=== PATIENT | male | born 2000 | race Two or more races ===

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

== ENCOUNTER 2025-04-26 20:40 | Inpatient (IN) | payer MEDICAID ==
[~2025-04-26] VITALS: Ht 172.7 cm; Wt 75.0 kg
[~2025-04-26 20:40] MED LIST: CEPH-585 PO; NAPR-56 PO
[2025-04-26 21:23] LABS: MEAN PLATELET VOLUME 7.2 FL (7.4-10.4); RED CELL DISTRIBUTION WIDTH 13.4 % (11.5-14.5)
[2025-04-26 21:32] LABS: CREATININE 0.82 MG/DL (0.60-1.10); TOTAL CARBON DIOXIDE 26.6 MMOL/L (24-32); eCRCL 137 ML/MIN; eGFR > 90 ML/MIN
--- NOTE | 2025-04-26 22:24 | Physician Documentation ---
History of Present Illness ~ Chief Complaint: Abscess Stated Complaint: ABSCESS Time Seen by MD: 23:19 HPI This is a 24-year-old male who presents with concern for abscess to his right buttock progressively worsening over the past three days, patient reports no known injury to the area. Patient reports frequent abscesses. Patient reports fever and chills. History as above. He reports multiple abscesses in his buttock ever since he was 13 years old. He states this when began three days ago. Positive fevers. Tetanus Within 5 Years: No Medication Reconciliation Allergies: Uncoded Allergies: SULFA (Allergy, Unknown, 11/20/24) Scheduled Cephalexin*Monohydrate* (Keflex*), 1 CAP PO QID Naproxen (Naproxen), 1 TAB PO Q12H Past Medical History Past Medical History: *DERMATOLOGY*, Cellulitis Past Surgical History: other Other Past Surgical History: Pilonidal cyst drainage Drug Use: none Lives In: Home Review of Systems ROS As stated above in the HPI, otherwise all systems are reviewed and negative. Physical Exam Vital Signs: Temperature: 100.0, Source: Temporal, Heart Rate: 127, Respiratory Rate: 15, BP: 114/75, Pulse Oximetry: 97, Weight: 75.000 Physical Exam General: Patient is awake, alert, oriented x4 in no acute distress Head: Normocephalic and atraumatic. Eyes: Conjunctival normal. EOMI. PERRL. ENT: Mucous membranes moist. Neck: Supple, trachea is midline. Chest: Clear to auscultation bilaterally without rales, rhonchi, or wheezes. There is no accessory muscle use or retractions. Cardiac: Tachycardic and regular without murmurs, gallops, or rubs. Abd: Soft, nondistended, nontender, with normoactive bowel sounds. No guarding, rebound, or rigidity. : Large 10 cm abscess to patient's right buttock. No cellulitis Procedures Procedures Patient and drainage: Status post informed verbal consent patient was sterilely cleaned and draped. 10 cc of lidocaine with epinephrine was utilized to anesthetize patient. 11. Blade utilized to perform to incision garvey to patient's large abscess. De loculation with sterile probe performed along with expression of a proximally 20 cc of purulent discharge. Packing was threaded through patient's abscess and doubt create a loop for continued drainage. Patient tolerated procedure well without complication. Total time of procedure 10 minutes. Progress Results/Orders Results/Orders Orders - CRISTO LIRA MD Culture Blood (04/26/25 21:00) Chest,Single View (04/26/25 21:05) Monitor (04/26/25 21:00) Oxygen (04/26/25 21:00) Saline Lock (04/26/25:00) Ct Pelvis (04/26/25 23:45) Culture Body Fluid Order (04/26/25:45) Page Hospitalist (04/27/25 00:39) Fill Out Med Reconciliation (04/27/25 00:39) Completed Orders - CRISTO LIRA MD Cbc/Diff (04/26/25:00) Chest,Single View (04/26/25 21:05) Procalcitonin (04/26/25:00) BMP (04/26/25 21:00) Lacticsepsis (04/26/25 21:00) Piperacillin/Tazo 3.375gm/50ml (Zosyn 3. (04/26/25 23:25) Vancomycin 1gm 200ml H20 (Peg) (Vancomyc (04/26/25 23:25) Ct Pelvis (04/26/25 23:45) Normal Saline 1000ml (0.9% Sodium Chlori (04/26/25 23:25) Lidocaine 1% W/Epi 1:100,000 (Xylocaine (04/26/25:25) Iohexol 300mg/Ml 100ml Inj. (Omnipaque-3 (04/26/25 23:35) Vancomycin/Ns 1 Gm Add-Pine (Vancomyc (04/26/25 23:40) Ketorolac Trometh 15mg/Ml Vial (Toradol (04/26/25 23:45) Ondansetron Inj. (Zofran 4mg/2ml Vial) (04/26/25 23:45) Morphine 4mg/Ml Inj. (Morphine Inj.) (04/26/25 23:45) Ua W/Microscopic, Cult If Ind (04/26/25 23:26) Medications Received in ER Medications (Trade) Dose Ordered Sig/Sherry Route PRN Reason Start Time Stop Time Status Last Admin Dose Admin Piperacillin/ Tazobactam/ Dextrose 50 ml @ 100 mls/hr ONCE ONCE IV 04/26/25 23:25 04/26/25 23:54 DC 04/26/25 23:49 100 MLS/HR (0.9% sodium chloride (NS) 1000ml IV soln) 2,000 ml ONCE ONCE IVB 04/26/25 23:25 04/26/25 23:26 DC 04/26/25 23:50 2,000 ML (Xylocaine 1%-EPI 1:100,000) Physician to administ... ONCE ONCE IJ 04/26/25 23:25 04/26/25 23:38 DC 04/26/25 23:50 20 ML Vancomycin HCl 250 ml @ 166.236 mls/hr ONCE ONCE IV 04/26/25 23:40 04/27/25 01:10 DC 04/27/25 00:50 166.236 MLS/HR (Toradol injection) 15 mg ONCE ONCE IV 04/26/25 23:45 04/26/25 23:46 DC 04/26/25 23:52 15 MG (Zofran 4mg/2ml vial) 4 mg ONCE ONCE IV 04/26/25 23:45 04/26/25 23:46 DC 04/26/25 23:51 4 MG (morphine inj.) 4 mg ONCE ONCE IV 04/26/25 23:45 04/26/25 23:46 DC 04/26/25 23:51 4 MG Vital Signs 04/26/25 04/26/25 04/27/25 20:58 23:16 00:08 Temp 100.0 100.0 100.0 Pulse 127 101 89 Resp 15 16 23 B/P (MAP) 114/75 117/66 (83) 116/68 (84) Pulse Ox 97 97 98 O2 Flow Rate 0 Laboratory Tests Test 04/26/25 21:11 04/26/25 23:26 White Blood Count 19.1 H Red Blood Count 4.46 L Hemoglobin 15.0 Hematocrit 42.6 Mean Corpuscular Volume 95.5 Mean Corpuscular Hemoglobin 33.5 H Mean Corpuscular Hemoglobin Concent 35.1 Red Cell Distribution Width 13.4 Platelet Count 322 Mean Platelet Volume 7.2 L Neutrophils (%) (Auto) 83.3 H Lymphocytes (%) (Auto) 9.3 L Monocytes (%) (Auto) 6.5 Eosinophils (%) (Auto) 0.6 Basophils (%) (Auto) 0.3 Neutrophils # (Auto) 15.9 H Lymphocytes # (Auto) 1.8 Monocytes # (Auto) 1.2 H Eosinophils # (Auto) 0.1 Basophils # (Auto) 0.1 CBC Comment Sodium Level 137 Potassium Level 3.2 L Chloride Level 99 Carbon Dioxide Level 26.6 Anion Gap 11 Blood Urea Nitrogen 9 Creatinine 0.82 Estimated GFR/1.73 m2 > 90 BUN/Creatinine Ratio 11.0 Glucose Level 98 Lactic Acid Level 2.0 Calcium Level 9.0 Albumin 4.2 Procalcitonin 0.43 Chemistry Comments Urine Specimen Description Cln catch midstream Urine Color Yellow Urine Clarity Clear Urine pH 5.0 Urine Specific [place] >=1.030 Urine Protein 30 H Urine Glucose (UA) Negative Urine Ketones Trace H Urine Occult Blood Negative Urine Nitrite Negative Urine Bilirubin Small Urine Urobilinogen 0.2 Urine Leukocyte Esterase Negative Urine RBC 0-2 Urine WBC 0-4 Urine Squamous Epithelial Cells Few Urine Amorphous Urates 1+ Urine Bacteria None seen Urine Sperm Few Urine Culture Indicated Not ind Volume Urine Centrifuged 10 ml Urine Comment Microbiology Date/Time Source Procedure Growth Status 04/26/25 21:16 Blood Hand Right Blood Culture - Preliminary NEGATIVE (LESS THAN 24 HOURS) Resulted Medical Decision Making Additional information obtaine: old records Findings Patient presented to the emergency room with a abscess on his right buttock. Patient is septic with fever tachycardia leukocytosis. In this light IV antibiotics and IV fluids has been administered. Patient's blood pressures remained stable however he is septic and we will admit for continued antibiotics. Patient is status post incision and drainage. Differential Dx:Considerations: Include: Abscess, Bacteremia, Cellulitis, Erys ipelas, Felon, Gas gangrene, Hidrademitis suppurativa, Impetigo, Lymphangitis, Osteromyelitis, Paronychia, Septicemia, Other Departure Admitted to Inpatient Unit: yes, to hospitalist Impression: Primary Impression: Abscess Additional Impression: Sepsis Condition: Guarded Referrals: NO PRIMARY CARE PROVIDER (PCP) Signature Scribe Signature: No scribe Attestation: The note accurately reflects work and decisions made by me.Cristo Lira MD 04/27/25 00:38 ELAINE REYES Apr 26, 2025 22:24 CRISTO LIRA MD Apr 26, 2025 23:29
[2025-04-26] MEDS ORDERED: VANCOMYCIN 1GM 200ML H20 (PEG) 200 ML IV ONE (23:25)
[2025-04-26] MEDS ORDERED: iohexol 300mg/ml 100ml inj. ONE (23:35)
[2025-04-26 23:43] LABS: LEUKOCYTE ESTERASE ,URINE NEGATIVE (Neg); NITRITES, URINE NEGATIVE (Neg); OCCULT BLOOD,URINE NEGATIVE (Neg)
[2025-04-26] MEDS: piperacillin/tazo 3.375gm/50ml 50 ML IV ONE (23:49)
[2025-04-26] MEDS: normal saline 1000ML IV soln IVB ONE (23:50)
[2025-04-26] MEDS: LIDOcaine 1% W/epiNEPHrine 1:100,000 20ml vial IJ ONE (23:50)
[2025-04-26] MEDS: ondansetron/PF 4mg/2ml inj IV ONE (23:51)
[2025-04-26] MEDS: morphine 4 MG/ML inj SYRINge IV ONE (23:51)
[2025-04-26 23:52] LABS: UA COLLECTION TYPE CLN CATCH MIDSTREAM
[2025-04-26] MEDS: ketorolac trometh 15mg/ml vial 15 MG/ML ML IV ONE (23:52)
[2025-04-26 23:54] LABS: AMORPHOUS URATES 1+; SPERM FEW /HPF (NEGATIVE); SQUAMOUS EPITHELIAL CELL,UR FEW /LPF (FEW)
[2025-04-27] VITALS (7 sets, daily range): BP systolic 105–123; BP diastolic 57–72; PULSE 61–98; RESP 14–18; TEMP 97.5–98.2; O2SAT 98–99
[2025-04-27] MEDS: vancomycin/NS 1 GM ADD-VANTAGE 250 ML IV ONE (00:50)
[2025-04-27] MEDS ORDERED: magnesium Cl slow-release 64mg tablet PO PRN (00:55)
[2025-04-27] MEDS ORDERED: magnesium sulf-water 2g/50mL 50 ML IV PRN (00:55)
[2025-04-27] MEDS ORDERED: mag hydrox/Alum hydrox/simeth 30ml oral suspension PO PRN (00:55)
[2025-04-27] MEDS ORDERED: magnesium hydroxide 30ml (MOM) UD suspension PO PRN (00:55)
[2025-04-27] MEDS ORDERED: magnesium sulf-water 4G/100mL 100 ML IV PRN (00:55)
[2025-04-27] MEDS ORDERED: potassium Cl 40MEQ/1/2NS 520ml 520 ML IV PRN (00:55)
[2025-04-27] MEDS ORDERED: potassium Cl 20 mEq SR tablet PO PRN (00:55)
--- NOTE | 2025-04-27 01:00 | RADIOLOGY REPORT ---
History: infection Comparison Study: None Technique: Multidetector spiral CT of the pelvis was performed from iliac crests to pubic symphysis. 100 cc of intravenous contrast was administered during this examination. Portal venous imaging was obtained. Axial, coronal and sagittal multiplanar reformats were performed by the technologist on a separate workstation. Radiation Dose : CT Dose: CTDI volume is 20.38 mGy. Dose-length product is 759.15 mGy*cm Findings: Visualized bowel: Small bowel and colon are normal in caliber and distribution. The appendix is normal. Ascites: Absent Lymphadenopathy: No pelvic or mesenteric lymphadenopathy. Pelvis Wall and Mesentery: Unremarkable. Vasculature: The visualized abdominal aorta is normal in size and caliber. Abdominal and pelvic vessels demonstrate normal enhancement. Pelvic Organs: Unremarkable Musculoskeletal: Well-circumscribed rim enhancing organized collection of fluid and gas within the posterior gluteal and thigh soft tissues measuring 8.5 x 5.9 x 2.9 cm, consistent with abscess. There is substantial adjacent associated inflammatory change and soft tissue swelling and edema consistent with probable cellulitis. No aggressive focal bony lesions, acute fractures or dislocation. Bladder: Unremarkable IMPRESSION: Posterior gluteal and thigh soft tissue abscess with associated cellulitis.
[2025-04-27] MEDS: normal saline 1000ml 1,000 ML IV SCH (01:24)
[2025-04-27 01:48] LABS: APTT 33 SECONDS (22-32); INR 1.1 INR
[2025-04-27 02:01] LABS: CREATININE 0.81 MG/DL (0.60-1.10); PHOSPHORUS 4.1 MG/DL (2.3-4.5); PRO BRAIN NATRIURETIC PEPTIDE 107 PG/ML (0-125); TOTAL CARBON DIOXIDE 26.4 MMOL/L (24-32); eCRCL 138 ML/MIN; eGFR > 90 ML/MIN
--- NOTE | 2025-04-27 02:10 | HISTORY AND PHYSICAL-Residence ---
History & Physical Providers to CC Resident Creating Document: LION VAZQUEZ DONIS, RES ~ History of Present Illness Reason for Admit\Complaint: swelling and pain in right buttock History of Present Illness A 24 years old male with 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 Patient stated that has a small bump started 3 days ago, progressively worsened to the size of around 10 cm with burning and stabbing type of pain of intensity 6/10 associated with mild fever and chills. Patient denies any pus or blood discharge . Patient denies any malaise,diabetes, recent steroid use or immuno suppressants, HIV or hepatitis, IV drug use. Patient has similar kind of abscess in multiple sites ( more on buttocks ) from the age of 14 years. The Most recent one was 6 months ago on the nape of neck. He did not remember any culture reports or antibiotics name previously . Patient stated that he lost 100 lbs at the age of 17. Allergies: Uncoded Allergies: SULFA (Allergy, Unknown, 11/20/24) Home Medications Home Medications Active Keflex* (Cephalexin HCl) 500 Mg Capsule 1 Cap PO QID Naproxen 500 Mg Tablet 1 Tab PO Q12H Past Medical History Past Medical History recurrent multiple abscess in multiple sites with unknown cause with I and D's Pilonidal abscess Past Surgical History Surgical History Comment recurrent multiple abscess in multiple sites with unknown cause with I and D's Past Social History Social History Comment Smokes marijuana every day Smoking: Greater than 1 pack/day Alcohol Use: Occasionally Drug Use: None, Marijuana Lives In: Home Occupation: other ROS ROS Constitutional: No fever, chills, dizziness, weight gain or loss, night sweats Eyes: No pain, erythema, discharge, blurring of vision ENT: No sore throat, epistaxis, tinnitus Cardiovascular:No chest pain, palpitations, syncope, lower extremity edema, paroxysmal nocturnal dyspnea Respiratory: No Shortness of breath and cough, No hemoptysis. Gastrointestinal:No Abdominal pain, vomiting,nausea and melena. Normal appetite. No constipation,diarrhea, hematemesis, Genitourinary: Reports swelling and pain on the right buttocks Musculoskeletal: No swelling or edema of extremities. Integumentary: No change in skin, hair, nails. No swelling, bruising, abrasions Neurologic: No weakness,No headache, neck pain, numbness or tingling of the extremities, Psychiatric: No delusions, depression, loss of interest in normal activity or change in sleep pattern, hallucinations, suicidal ideations Endocrine: No fatigue, no weakness. polydipsia, polyuria, change in appetite, heat or cold intolerance, sweating, dry skin Hematological: No bleeding, petechiae, bruising Allergies: No asthma or urticaria Exam Vitals: Vital Signs Date Time Temp Pulse Resp B/P (MAP) Pulse Ox O2 Delivery O2 Flow Rate FiO2 04/27/25 01:10 100.0 79 10 109/62 (78) 100 0 General: Awake , alert and oriented to time,place, person, moderate built, well- nourished, not in distress HEENT: Atraumatic, normocephalic, PERRLA, EOMI, anicteric sclera ; pink conjunctiva, moist mucos membranes Neck: Trachea midline. Supple, normal range of motion, no JVD, no lymphadenopathy Chest and Respiratory: Equal breath sounds bilaterally, no tachypnea, wheezing, ronchi,rubs .Chest wall is symmetric and without deformity. Cardiac: S1, S2 heard,Regular rate and rhythm, no murmurs ,no gallops, no rubs. Abdomen: Soft, No tenderness, No guarding or rigidity, Mclain's sign negative. normal bowel sounds x4 quadrant, no hepatosplenomegaly GI: Patient has multiple healed abscess sites over the both buttocks, right buttocks intact dressing with surrounding erythema MSK: Range of motion of all extremities are normal. There is no joint pain or joint swelling or joint erythema. There is no muscle pain or tenderness or swelling. Extremities: warm, well-perfused, No cyanosis, clubbing, 2+ pulses felt Neurological: Mental status exam: alert and consciousness, orientation, memory, speech - Cranial nerve test: Cranial nerves II-XII intact. - Motor system: Normal Nutrition, normal tone, Power 5/5, no involuntary movements - Sensory system: Intact - Reflex testing: Biceps, triceps and knee reflexes 2+ - Cerebellar: Normal Skin: Warm and dry Psychiatry: Affect and mood are normal Diagnostic Data Last Recorded Lab Results: 04/26/25 2111 04/27/25 0112 Diagnostic Data: Laboratory Tests Test 04/27/25 01:12 Prothrombin Time 11.2 SECONDS (9.0-12.0) INR International Normalized Ratio 1.1 INR Activated Partial Thromboplast Time 33 SECONDS (22-32) H Coagulation Comments Advance Care Planning Advanced Care plannin - 30 Minutes (I spent a total of 17 minutes on reviewing various resuscitative measures/ACP with the patient at the time of admission. The patient has decided on full code status) Additional Plan Abscess and cellulitis on the right buttock s/p I&D by ED physician Dr. Lira Sepsis, POA Hx of recurrent multiple abscess on multiple sites with unknown cause 10x 5 cm large abscess with 20 cc of purulent discharge as per ED physician Patient tolerated the procedure well Patient has fever, chills, sinus tachycardia, elevated white count CT pelvis: Well-circumscribed rim enhancing organized collection of fluid and gas within the posterior gluteal and thigh soft tissues measuring 8.5 x 5.9 x 2.9 cm, consistent with abscess. There is substantial adjacent associated inflammatory change and soft tissue swelling and edema consistent with probable cellulitis CBC showed leukocytosis with neutrophil predominance- 19.1 Lactate,procalcitonin are in normal limits Follow up on CRP and ESR Follow up on HIV and hepatitis panel Follow up on wound culture and blood culture IV vancomycin pharmacy to dose daily IV Zosyn q.8h IV NS @ 100 mL/hour Wound Care was consulted Consult Infectious Disease in the morning Substance use disorder Follow up UDS Substance use navigator and social service consult Code status: Full code DVT prophylaxis : LOVENOX GI prophylaxis: Protonix Nutrition: Regular diet Physical therapy: ordered Line/tube: PIV Analgesia/sedation: Tylenol Disposition: Continue antibiotics, follow up on HIV and hepatitis panel, consult Infectious Disease in the morning Resident attestation The above note has been reviewed and supervised by a senior resident PGY2/PGY3 Patient was seen, examined and discussed with the attending physician Maria Teresa Vazquez MD Internal Medicine Resident, PGY 1 Date of Service: Apr 27, 2025 Billing Provider: HOOD BURKS MD Addendum Attestation I agree with the residents assessment and plan as below: 24 year old male with hx of multiple abscesses admitted with swelling in the buttox. Plan: surgery for I and D vanc and zosyn ID consult follow up blood cultures CCT 52 min using HIPPA compliant A/V technology LION VAZQUEZ, RES Apr 27, 2025 02:10 HOOD BURKS MD Apr 27, 2025 09:33
[2025-04-27 02:52] LABS: URINE AMPHETAMINE SCREEN NEGATIVE (Neg); URINE BARBITUATE SCREEN NEGATIVE (Neg); URINE BENZODIAZEPINES SCREEN NEGATIVE (Neg); URINE CANNABINOID SCREEN POSITIVE (Neg); URINE COCAINE SCREEN NEGATIVE (Neg); URINE METHADONE SCREEN NEGATIVE (Neg); URINE OPIATE SCREEN NEGATIVE (Neg); URINE PHENCYCLIDINE SCREEN NEGATIVE (Neg)
[2025-04-27] MEDS ORDERED: VANCOMYCIN/H2O 750mg/150mL PB 150 ML IV ONE (03:00)
[2025-04-27] MEDS: vancomycin inj. 750 MG in normal saline 250ml IV soln 250 ML IV ONE (04:51)
[2025-04-27 05:15] LABS: HIV ANTIBODY 1&2 RAPID NON-REACTIVE (Neg)
[2025-04-27] MEDS: K and/or MAG REPLACEMENT MC SCH (08:00)
[2025-04-27] MEDS: piperacillin/tazo 3.375gm/50ml 50 ML IV SCH (08:00)
[2025-04-27] MEDS: potassium Cl 20 mEq SR tablet PO PRN (09:01)
[2025-04-27] MEDS: docusate sod 100mg capsule PO SCH (09:01)
[2025-04-27] MEDS: ondansetron/PF 4mg/2ml inj IV PRN (09:02)
[2025-04-27] MEDS: enoxaparin 100mg/ml syringe SUBCUT SCH (09:04)
[2025-04-27] MEDS: magnesium sulf-water 2g/50mL 50 ML IV ONE (09:09)
[2025-04-27] MEDS: vancomycin/NS 1 GM ADD-VANTAGE 250 ML IV SCH (09:19)
--- NOTE | 2025-04-27 09:25 | RADIOLOGY REPORT ---
CHEST RADIOGRAPH Indication: sepsis Technique: Single frontal view of the chest was obtained Comparison: None FINDINGS: Lines and Tubes: None Lungs: No focal consolidation. Pleura: No effusion. No pneumothorax. Cardiomediastinal contours: Unremarkable Bones: No acute osseous abnormality. IMPRESSION: No acute cardiopulmonary disease.
[2025-04-27] MEDS ORDERED: vancomycin/NS 1 GM ADD-VANTAGE 250 ML IV SCH (11:00)
[2025-04-27] MEDS: JUVEN Shake w/Arg/Glut/Ca2+Bmb (Juven 19.3gm) pkt 240ml PO SCH (16:29)
--- NOTE | 2025-04-27 18:58 | PROGRESS NOTE- Residence ---
Progress Note - Resident Providers to CC Resident Creating Document: STAR RODRIGUEZ RES ~ Antibiotic Timeout Antibiotic Ordered?: Yes Subjective Patient was seen and examined bedside. He states that his pain has significantly improved which is 2/10 severity. Dressing present over the right buttock with no bleeding or soakage. He denies fever, chills. Objective Vital Signs Date Time Temp Pulse Resp B/P (MAP) Pulse Ox O2 Delivery O2 Flow Rate FiO2 04/27/25 15:13 16 04/27/25 10:00 98.2 78 107/64 (78) 99 Room Air 04/27/25 01:10 0 Result Diagram: 04/26/25 2111 04/27/25 0112 Awake , alert, and oriented x4, resting comfortably in the bed, in no acute distress HEENT: Atraumatic, normocephalic, EOMI, anicteric sclera ; pink conjunctiva, moist mucous membranes Neck: Trachea midline. Supple, full range of motion, no JVD Cardiac: Regular rhythm, regular rate with no murmurs all over the precordium. Respiratory: Equal breath sounds bilaterally, no tachypnea, no wheezing ,rub or rales, Chest wall is symmetric and without deformity. Gastrointestinal: Abdomen symmetric, non-distended, soft, non-tender, normal bowel sounds x4 quadrant, normoactive, no hepatosplenomegaly Musculoskeletal: No pedal edema, no cyanosis Neurological: Speech is clear, alert, and oriented x 4. No motor or sensory deficit, deep tendon reflexes normal, cerebellar intact. Cranial nerves II-XII intact. Skin: Patient has multiple healed abscess sites over both buttocks, dressing present over the right buttock with no soakage Coagulation Studies Laboratory Tests Test 04/27/25 01:12 Prothrombin Time 11.2 SECONDS (9.0-12.0) INR International Normalized Ratio 1.1 INR Activated Partial Thromboplast Time 33 SECONDS (22-32) H Coagulation Comments Assessment Assessment 24-year-old male with history of recurrent multiple abscesses at multiple sites admitted for management of abscess in right buttock. Plan Plan Abscess and cellulitis on the right buttock s/p I&D by ED physician Dr. Lira Sepsis, POA Hx of recurrent multiple abscess on multiple sites with unknown cause 10x 5 cm large abscess with 20 cc of purulent discharge as per ED physician Patient tolerated the procedure well Patient has fever, chills, sinus tachycardia, elevated white count CT pelvis: Well-circumscribed rim enhancing organized collection of fluid and gas within the posterior gluteal and thigh soft tissues measuring 8.5 x 5.9 x 2.9 cm, consistent with abscess. There is substantial adjacent associated inflammatory change and soft tissue swelling and edema consistent with probable cellulitis CBC showed leukocytosis with neutrophil predominance- 19.1 Lactate,procalcitonin are in normal limits Follow up on CRP and ESR Follow up on HIV and hepatitis panel Follow up on wound culture and blood culture IV vancomycin pharmacy to dose daily IV Zosyn q.8h IV NS @ 100 mL/hour Wound Care was consulted Consult Infectious Disease in the morning 04/27/25 Vitals are stable Dressing present over right buttock with no bleeding or soakage Continue IV Zosyn q.8h and vancomycin Continue IV NS at 100 mL/hour Wound culture shows moderate Gram-positive cocci in pairs HIV is negative, follow up hepatitis panel CRP is elevated 4.99, ESR is normal Consulted ID, Dr. Vu, awaiting recommendations Elevated alkaline phosphatase Alkaline phosphatase is 124 Total bilirubin is 0.3 Follow up GGT Substance use disorder Urine drug screen is positive for cannabinoids Substance use navigator and social service consult Code status: Full code DVT prophylaxis: Lovenox GI prophylaxis: Protonix Pain management: Morphine p.r.n. Diet/nutrition: Regular diet Prognosis: Guarded Disposition: Continue medical management, awaiting ID recommendations, PT eval and DC plan Resident MD attestation: The patient note has been reviewed and supervised by senior residents PGY-2/ PGY-3. Patient was seen, examined and discussed with attending physician. Star Rodriguez MD Internal Medicine resident, PGY-1 Date of Service: Apr 27, 2025 Billing Provider: JEROME DOWNS MD Common Visit Codes: [id number] INP/OBS CARE(HIGH) STAR RODRIGUEZ, RES Apr 27, 2025 18:58 JEROME DOWNS MD May 03, 2025 06:26
--- NOTE | 2025-04-27 23:17 | CONSULTATION REPORT ---
Consult Consult Consultation Reason for Consult: Buttock abscess Consulting Provider: Dr. Mason Antibiotic Days: Vanc 1, Zosyn 1 Lines: PIV Micro: 04/26 Blood- ngtd 04/27 Abscess- ngtd HPI: Patient is a 24 year old male with past medical history of recurrent abscesses who presented to [facility] on 04/26 with swelling and pain of his R buttock. He underwent I&D while in the ER though those cultures are still preliminary. He was admitted on Vanc and Zosyn and ID Is asked to consult for further management. On today's exam, patient denies any known immunocompromising conditions. He states he gets these in his armpts and buttocks but there has been one on his chin before as well. He says he utilizes both ERs when he needs drainage. He is allergic to Sulfa causing rash. Past Medical/Surgical History: As above Current Medications Medications (Trade) Dose Ordered Sig/Sherry Route PRN Reason Start Time Stop Time Status Last Admin Dose Admin Piperacillin/ Tazobactam/ Dextrose 50 ml @ 100 mls/hr ONCE ONCE IV 04/26/25 23:25 04/26/25 23:54 DC 04/26/25 23:49 100 MLS/HR Sodium Chloride (0.9% sodium chloride (NS) 1000ml IV soln) 2,000 ml ONCE ONCE IVB 04/26/25 23:25 04/26/25 23:26 DC 04/26/25 23:50 2,000 ML Lidocaine/ Epinephrine (Xylocaine 1%-EPI 1:100,000) Physician to administ... ONCE ONCE IJ 04/26/25 23:25 04/26/25 23:38 DC 04/26/25 23:50 20 ML Vancomycin HCl 250 ml @ 166.236 mls/hr ONCE ONCE IV 04/26/25 23:40 04/27/25 01:10 DC 04/27/25 00:50 166.236 MLS/HR Ketorolac Tromethamine (Toradol injection) 15 mg ONCE ONCE IV 04/26/25 23:45 04/26/25 23:46 DC 04/26/25 23:52 15 MG Ondansetron HCl (Zofran 4mg/2ml vial) 4 mg ONCE ONCE IV 04/26/25 23:45 04/26/25 23:46 DC 04/26/25 23:51 4 MG Morphine Sulfate (morphine inj.) 4 mg ONCE ONCE IV 04/26/25 23:45 04/26/25 23:46 DC 04/26/25 23:51 4 MG Morphine Sulfate (morphine inj.) 1 mg Q4H PRN IV moderate pain (4-6) 04/27/25 00:55 04/27/25 20:25 1 MG Ondansetron HCl (Zofran 4mg/2ml vial) 4 mg Q6H PRN IV nausea/vomiting 04/27/25 00:55 04/27/25 09:02 4 MG Docusate Sodium (Colace capsule) 100 mg BID PO 04/27/25 08:00 04/27/25 09:01 100 MG Sodium Chloride 1,000 ml @ 100 mls/hr Q10H IV 04/27/25 00:55 04/27/25 21:17 100 MLS/HR Potassium Chloride (K-DUR tablet) 20 meq Q4H PRN PO Potassium 3.1-3.4 04/27/25 00:55 04/30/25 00:54 04/27/25 17:41 20 MEQ Piperacillin/ Tazobactam/ Dextrose 50 ml @ 12.5 mls/hr Q8H IV 04/27/25 08:00 04/27/25 16:00 12.5 MLS/HR Vancomycin HCl (Vancomycin Pharmacy To Dose) 1 unit DAILY IV 04/27/25 08:00 04/27/25 08:00 1 UNIT Enoxaparin Sodium (Lovenox syringe) 40 mg Q24H SUBCUT 04/27/25 08:00 04/27/25 09:04 40 MG Vancomycin HCl 750 mg/Sodium Chloride 250 ml @ 166 mls/hr ONCE ONCE IV 04/27/25 04:45 04/27/25 06:15 DC 04/27/25 04:51 166 MLS/HR Vancomycin HCl 250 ml @ 250 mls/hr Q8H@0100,0900,1700 IV 04/27/25 09:00 04/27/25 16:29 250 MLS/HR Magnesium Sulfate 50 ml @ 25 mls/hr ONCE ONCE IV 04/27/25 08:15 04/27/25 10:14 DC 04/27/25 09:09 25 MLS/HR Enteral Nutritional Formula (ZEKE Shake w/ Arginine/glutam./ calcium) 1 cup BIDLD PO 04/27/25 17:30 04/27/25 16:29 1 CUP Social History: Denies recreational drug use Family History: Noncontributory ROS: As in HPI, otherwise negative Objective: Vitals: Afebrile, 78, 18, 107/64, 99% on RA General: A&Ox3, NAD HEENT: NC/AT, normal conjunctiva, no oral lesions CV: Regular Resp: Clear anteriorly Abd: Soft, nontender, nondistended Skin: R buttocks with poorly demarcated erythema and packing Lines: PIV ok Laboratory Tests 04/26/25 21:11 04/27/25 01:12 04/26 CT Posterior gluteal and thigh soft tissue abscess with associated cellulitis. Assessment: // R gluteal abscess s/p I&D in the ER with cultures pending. -He sites a hx of recurrences but last culture here in 2021 grew nothing. His A1c looks good and HIV screens negative. His distribution could suggest HS but this incidence appears to be an abscess // Leukocytosis due to the above // Antibiotic Allergies: Sulfa caused a rash // MRSA Screen: pending Plan: - Can continue Vanco and Zosyn for now - Will follow up pending cultures and deescalate as appropriate - Monitor WBC count, induration - Wound care - Thank you for the consult, will continue to follow KEVIN PERALTA DO Apr 27, 2025 23:17
[2025-04-28] VITALS (7 sets, daily range): BP systolic 103–128; BP diastolic 63–74; PULSE 64–76; RESP 16–17; TEMP 97.3–98.4; O2SAT 98–100
[2025-04-28] MEDS: VANCOMYCIN LEVEL IV ONE (00:52)
[2025-04-28 06:00] LABS: MEAN PLATELET VOLUME 7.7 FL (7.4-10.4); RED CELL DISTRIBUTION WIDTH 13.3 % (11.5-14.5)
[2025-04-28 06:02] LABS: HBSAG SCREEN Negative (Negative); HEP B CORE AB, IGM Negative (Negative); HEPATITIS C VIRUS ANTIBODY Non Reactive (Non Reactive)
[2025-04-28 06:07] LABS: CHOL/HDL RATIO 2.8 (0.00-4.99); CREATININE 0.54 MG/DL (0.60-1.10); LDL CHOLESTEROL 39 MG/DL (50-100); TOTAL CARBON DIOXIDE 28.0 MMOL/L (24-32); eCRCL 208 ML/MIN; eGFR > 90 ML/MIN
[2025-04-28] MEDS ORDERED: HYDROcodone/acetaminophen 10/325mg tab PO PRN (08:35)
[2025-04-28] MEDS ORDERED: enoxaparin 40mg/0.4ml syringe SUBCUT SCH (08:40)
[2025-04-28] MEDS: HYDROcodone/acetaminophen 5mg/325mg tablet PO PRN (08:48)
[2025-04-28] MEDS: VANCOMYCIN/WATER FOR INJ (PEG) 1.5GM/300 ML IVPB IV SCH (08:49)
[2025-04-28] MEDS: enoxaparin 40mg/0.4ml syringe SUBCUT SCH (11:07)
[2025-04-28] MEDS: piperacillin/tazo 3.375gm/50ml 50 ML IV SCH (12:23)
--- NOTE | 2025-04-28 13:57 | PROGRESS NOTE- Residence ---
Progress Note - Resident Providers to CC Resident Creating Document: SHELBY LAM RES ~ Antibiotic Timeout Antibiotic Ordered?: Yes Subjective Patient worsened at the bedside this morning. Patient reported that his pain is getting better and endorsed that he has been having multiple abscess over the skin. He stated that he has developed multiple abscess over his skin throughout the body since he was 13. He is practicing monogamous with his one girlfriend, not practice in any risky sexual behavior, and did not provide any recurrent frequent upper and lower respiratory infections and dental infections since he was young. Hemoglobin is within normal limits and nonreactive HIV antibody rapid test. He denies for any skin pinching and pricking and drug usages except for cannabinoids. Objective Vital Signs Date Time Temp Pulse Resp B/P (MAP) Pulse Ox O2 Delivery O2 Flow Rate FiO2 04/28/25 11:17 97.3 76 17 106/73 (84) 98 Room Air 04/27/25 01:10 0 Result Diagram: 04/28/25 0455 04/28/25 0455 Vitals were stable at the moment with temp 97.3 F, VT 76/minute, RR 70/minute, BP 106/70 mm Hg, pulse oximetry 98% on room air. On examination, General: Well alert, well oriented, not confused, not agitated, not in acute distress, well cooperated during the physical. HEENT: Conjunctive are pink, sclerae clear, no icterus, pupil is equal in both sides, reactive to light, no ear discharge, no pharyngeal erythema or an edema, mouth and lips are moist. Neck: Supple, no JVD, no lymphadenopathy and thyromegaly. Lungs:Equal air entry on both lungs, no additional sounds Heart: S1-S2 regular sinus rhythm and, regular rate, no gallops, no rubs, no murmurs Abdomen: The right buttock post I&D wound shows improvement with declining tenderness and he with well union which was covered were with foam dressing. No visible peristalsis, Bowel sounds present on auscultation, soft, nontender, no guarding, no rigidity Extremities: No obvious deformities, no pitting edema bilaterally, capillary refill intact, able to wiggle toes both sides, peripheral pulsations are intact on both sides [employer]: No focal neurological deficits, no motor and sensory weakness in all 4 extremities, could move all 4 extremities Musculoskeletal: No joint swelling, deformities, inflammations, and no scoliosis and back tenderness Skin: Generalized old healed abscess and scar from previous multiple HS abscesses throughout the body. No active skin lesions and rashes Coagulation Studies Laboratory Tests Test 04/27/25 01:12 Prothrombin Time 11.2 SECONDS (9.0-12.0) INR International Normalized Ratio 1.1 INR Activated Partial Thromboplast Time 33 SECONDS (22-32) H Coagulation Comments Assessment Assessment A 24-year-old male with history of recurrent multiple generalized abscesses at multiple sites who was admitted for management of abscess in right buttock for I and D and empiric broad-spectrum antibiotics, and to figure out the etiology of recurrence. Plan Plan # Abscess and cellulitis on the right buttock # s/p I&D by ED physician Dr. Lira # Sepsis, POA- treated with empiric broad-spectrum antibiotic -Hx of recurrent multiple abscess on multiple sites with unknown etiology since 13 years old -10x 5 cm large abscess with 20 cc of purulent discharge as per ED physician -Patient has fever, chills, sinus tachycardia, CBC showed leukocytosis with neutrophil predominance- 19.1 on admission met sepsis criteria -CT pelvis: Posterior gluteal and thigh soft tissue abscess with associated cellulitis. Well-circumscribed rim enhancing organized collection of fluid and gas within the posterior gluteal and thigh soft tissues measuring 8.5 x 5.9 x 2.9 cm, consistent with abscess. There is substantial adjacent associated inflammatory change and soft tissue swelling and edema consistent with probable cellulitis -ID was consulted, obtain the wound culture and sensitivity, and recommended to continue current antibiotics for the possible etiology of HS.; -HGB A1c 5.1%, nonreactive HIV one and two rapid tests, clear hepatitis-B and C infections -Follow up on wound culture and blood culture, continue wound care -Continue IV vancomycin pharmacy to dose daily and IV Zosyn q.8h-day two, significant improvement in WBC count -IV NS @ 100 mL/hour -patient does not need any further investigation for the possible congenital immunodeficiency presented with multiple skin infection/abscesses in the absence of any other upper and a lower respiratory infections after discussed with the ID specialist Dr. Vu. # Elevation of isolated alkaline phosphatase -normal liver function tests -pending GGT to confirm bony or from hepatobiliary origin -next step should be ultrasound abdomen and autoimmune antibody tests if it is from hepatobiliary origin # Substance use disorder -Urine drug screen is positive for cannabinoids -Substance use navigator and social service consulted and appreciate Code status: Full code DVT prophylaxis: Lovenox GI prophylaxis: Protonix Pain management: Morphine p.r.n. Diet/nutrition: Regular diet Prognosis: Guarded Disposition: Continue medical management, continue antibiotics, and follow up with the culture and sensitivity results to adjust antibiotics for discharge, PT eval and DC plan Resident MD attestation: Patient was seen, examined and discussed with attending MD, Dr. Isabella LAM MD Internal Medicine Resident, PGY3 [facility] Date of Service: Apr 28, 2025 Billing Provider: JEROME DOWNS MD Common Visit Codes: [id number] INP/OBS CARE(HIGH) SHELBY LAM, RES Apr 28, 2025 13:57 JEROME DOWNS MD May 03, 2025 06:26
--- NOTE | 2025-04-28 22:30 | PROGRESS NOTE ---
Progress Note ID Providers to CC ~ Progress Note Progress Note: Antibiotic Days: Vanc 2, Zosyn 2 Lines: PIV Micro: 04/26 Blood- ngtd 04/27 Abscess- pending Subjective: Patient was seen just after his shower. His wound was greatly improved Objective: Vitals: Afebrile, 76, 17, 106/73, 98% on RA General: Alert, NAD CV: Regular Resp: Clear anteriorly Abd: Soft, nontender, nondistended Skin: R now with only pinpoint erythema and improved induration. Lots of scaring from before Lines: PIV ok Laboratory Tests 04/28/25 04:55 Assessment: // R gluteal abscess s/p I&D in the ER with cultures still pending. -He sites a hx of recurrences but last culture here in 2021 grew nothing. His A1c looks good and HIV screens negative. His distribution could suggest HS // Antibiotic Allergies: Sulfa caused a rash // MRSA Screen: pending Plan: - Can continue Vanco and Zosyn for now - Will follow up pending cultures and deescalate as appropriate; ideally to orals - He should get an outpatient derm evaluation for HS - Monitor WBC count, induration - Wound care - Will continue to follow KEVIN PERALTA DO Apr 28, 2025 22:30
[2025-04-29 06:00] VITALS: BP 116/60; PULSE 80; RESP 20; TEMP 98.3; O2SAT 97
[2025-04-29 06:15] LABS: CREATININE 0.53 MG/DL (0.60-1.10); MEAN PLATELET VOLUME 7.7 FL (7.4-10.4); RED CELL DISTRIBUTION WIDTH 13.2 % (11.5-14.5); TOTAL CARBON DIOXIDE 28.8 MMOL/L (24-32); eCRCL 212 ML/MIN; eGFR > 90 ML/MIN
[2025-04-29 08:00] VITALS: RESP 20; O2SAT 97
[2025-04-29] MEDS: VANCOMYCIN LEVEL IV ONE (08:30)
[2025-04-29 10:00] VITALS: BP 109/76; PULSE 69; RESP 16; TEMP 97.3; O2SAT 100
--- NOTE | 2025-04-29 10:58 | PROGRESS NOTE- Residence ---
Progress Note - Resident Providers to CC Resident Creating Document: STAR RODRIGUEZ RES ~ Antibiotic Timeout Antibiotic Ordered?: Yes Subjective Patient was seen and examined at bedside. He has no pain and is walking around comfortably. He denies fever, chills. Dressing is in place with no drainage, bleeding or soakage. No new overnight complaints reported. He does not have a PCP, he recently moved here 6 months ago His used to see a PCP at [facility], [place] He lives with his significant other and kids at home He is unemployed currently and looking for work Objective Vital Signs Date Time Temp Pulse Resp B/P (MAP) Pulse Ox O2 Delivery O2 Flow Rate FiO2 04/29/25 06:00 98.3 80 20 116/60 (78) 97 Room Air 04/27/25 01:10 0 Result Diagram: 04/29/2543504/29/25 043 Awake , alert, and oriented x4, resting comfortably in the bed, in no acute distress HEENT: Atraumatic, normocephalic, EOMI, anicteric sclera ; pink conjunctiva, moist mucous membranes Neck: Trachea midline. Supple, full range of motion, no JVD Cardiac: Regular rhythm, regular rate with no murmurs all over the precordium. Respiratory: Equal breath sounds bilaterally, no tachypnea, no wheezing ,rub or rales, Chest wall is symmetric and without deformity. Gastrointestinal: Abdomen symmetric, non-distended, soft, non-tender, normal bowel sounds x4 quadrant, normoactive, no hepatosplenomegaly Musculoskeletal: No pedal edema, no cyanosis Neurological: Speech is clear, alert, and oriented x 4. No motor or sensory deficit, deep tendon reflexes normal, cerebellar intact. Cranial nerves II-XII intact. Skin: Patient has multiple healed abscess sites over both buttocks, dressing present over the right buttock with no soakage, no tenderness noted Coagulation Studies Laboratory Tests Test 04/27/25 01:12 Prothrombin Time 11.2 SECONDS (9.0-12.0) INR International Normalized Ratio 1.1 INR Activated Partial Thromboplast Time 33 SECONDS (22-32) H Coagulation Comments Assessment Assessment 24-year-old male with history of recurrent multiple abscesses at multiple sites admitted for management of abscess in right buttock. Plan Plan # Abscess and cellulitis on the right buttock # s/p I&D by ED physician Dr. Lira # Sepsis, POA- treated with empiric broad-spectrum antibiotic -Hx of recurrent multiple abscess on multiple sites with unknown etiology since 13 years old -10x 5 cm large abscess with 20 cc of purulent discharge as per ED physician -Patient has fever, chills, sinus tachycardia, CBC showed leukocytosis with neutrophil predominance- 19.1 on admission met sepsis criteria -CT pelvis: Posterior gluteal and thigh soft tissue abscess with associated cellulitis. Well-circumscribed rim enhancing organized collection of fluid and gas within the posterior gluteal and thigh soft tissues measuring 8.5 x 5.9 x 2.9 cm, consistent with abscess. There is substantial adjacent associated inflammatory change and soft tissue swelling and edema consistent with probable cellulitis -ID was consulted, obtain the wound culture and sensitivity, and recommended to continue current antibiotics for the possible etiology of HS.; -HGB A1c 5.1%, nonreactive HIV one and two rapid tests, clear hepatitis-B and C infections -Follow up on wound culture and blood culture, continue wound care -Continue IV vancomycin pharmacy to dose daily and IV Zosyn q.8h-day two, significant improvement in WBC count -IV NS @ 100 mL/hour -patient does not need any further investigation for the possible congenital immunodeficiency presented with multiple skin infection/abscesses in the absence of any other upper and a lower respiratory infections after discussed with the ID specialist Dr. Vu. 04/29/[address] in right buttock without drainage, bleeding or soakage Continue IV vancomycin and Zosyn, as per recommendations of ID, Dr. Vu Wound culture shows Gram-positive cocci in pairs, follow up sensitivity report He will need outpatient dermatology evaluation # Elevation of isolated alkaline phosphatase -normal liver function tests -pending GGT to confirm bony or from hepatobiliary origin -next step should be ultrasound abdomen and autoimmune antibody tests if it is from hepatobiliary origin # Substance use disorder -Urine drug screen is positive for cannabinoids -Substance use navigator and social service consulted and appreciate Code status: Full code DVT prophylaxis: Lovenox GI prophylaxis: Protonix Pain management: Morphine p.r.n. Diet/nutrition: Regular diet Prognosis: Guarded Disposition: Continue medical management, continue antibiotics, and follow up with sensitivity report, PT dawit and DC plan Resident attestation: The patient note has been reviewed and supervised by senior residents PGY-2/ PGY-3. Patient was seen, examined and discussed with attending physician. Star Rodriguez MD Internal Medicine resident, PGY-1 Date of Service: Apr 29, 2025 Billing Provider: JEROME DOWNS MD Common Visit Codes: [id number] INP/OBS CARE(HIGH) STAR RODRIGUEZ, RES Apr 29, 2025 10:58 JEROME DOWNS MD May 03, 2025 06:26
[2025-04-29] MEDS: VANCOMYCIN 1.75GM/WATER FOR INJ (PEG) 350 ML IVPB IV SCH (17:06)
[2025-04-29 18:00] VITALS: BP 118/67; PULSE 99; RESP 18; TEMP 98.7; O2SAT 99
[2025-04-29 20:00] VITALS: RESP 18; O2SAT 99
[2025-04-29 22:00] VITALS: BP 107/54; PULSE 65; RESP 16; TEMP 97.4; O2SAT 98
[2025-04-30 05:58] LABS: MEAN PLATELET VOLUME 7.4 FL (7.4-10.4); RED CELL DISTRIBUTION WIDTH 13.0 % (11.5-14.5)
[2025-04-30 06:07] LABS: CREATININE 0.50 MG/DL (0.60-1.10); TOTAL CARBON DIOXIDE 29.2 MMOL/L (24-32); eCRCL 224 ML/MIN; eGFR > 90 ML/MIN
[2025-04-30 06:41] VITALS: BP 111/71; PULSE 67; RESP 18; TEMP 97.7; O2SAT 100
[2025-04-30 08:00] VITALS: RESP 18
--- NOTE | 2025-04-30 10:34 | PROGRESS NOTE- Residence ---
Progress Note - Resident Providers to CC Resident Creating Document: STAR RODRIGUEZ RES ~ Antibiotic Timeout Antibiotic Ordered?: Yes Subjective Patient was seen and examined at bedside. He has no pain and is walking around comfortably. He denies fever, chills. Dressing is in place with no drainage, bleeding or soakage. No new overnight complaints reported. Objective Vital Signs Date Time Temp Pulse Resp B/P (MAP) Pulse Ox O2 Delivery O2 Flow Rate FiO2 04/30/25 06:41 97.7 67 18 111/71 (84) 100 Room Air 04/29/25 20:00 0.0 Result Diagram: 04/30/2545804/30/25458 Awake , alert, and oriented x4, resting comfortably in the bed, in no acute distress HEENT: Atraumatic, normocephalic, EOMI, anicteric sclera ; pink conjunctiva, moist mucous membranes Neck: Trachea midline. Supple, full range of motion, no JVD Cardiac: Regular rhythm, regular rate with no murmurs all over the precordium. Respiratory: Equal breath sounds bilaterally, no tachypnea, no wheezing ,rub or rales, Chest wall is symmetric and without deformity. Gastrointestinal: Abdomen symmetric, non-distended, soft, non-tender, normal bowel sounds x4 quadrant, normoactive, no hepatosplenomegaly Musculoskeletal: No pedal edema, no cyanosis Neurological: Speech is clear, alert, and oriented x 4. No motor or sensory deficit, deep tendon reflexes normal, cerebellar intact. Cranial nerves II-XII intact. Skin: Patient has multiple healed abscess sites over both buttocks, dressing present over the right buttock with no soakage, no tenderness noted Coagulation Studies Laboratory Tests Test 04/27/25 01:12 Prothrombin Time 11.2 SECONDS (9.0-12.0) INR International Normalized Ratio 1.1 INR Activated Partial Thromboplast Time 33 SECONDS (22-32) H Coagulation Comments Assessment Assessment 24-year-old male with history of recurrent multiple abscesses at multiple sites admitted for management of abscess in right buttock. Plan Plan # Abscess and cellulitis on the right buttock # s/p I&D by ED physician Dr. Lira # Sepsis, POA- treated with empiric broad-spectrum antibiotic -Hx of recurrent multiple abscess on multiple sites with unknown etiology since 13 years old -10x 5 cm large abscess with 20 cc of purulent discharge as per ED physician -Patient has fever, chills, sinus tachycardia, CBC showed leukocytosis with neutrophil predominance- 19.1 on admission met sepsis criteria -CT pelvis: Posterior gluteal and thigh soft tissue abscess with associated cellulitis. Well-circumscribed rim enhancing organized collection of fluid and gas within the posterior gluteal and thigh soft tissues measuring 8.5 x 5.9 x 2.9 cm, consistent with abscess. There is substantial adjacent associated inflammatory change and soft tissue swelling and edema consistent with probable cellulitis -ID was consulted, obtain the wound culture and sensitivity, and recommended to continue current antibiotics for the possible etiology of HS.; -HGB A1c 5.1%, nonreactive HIV one and two rapid tests, clear hepatitis-B and C infections -Follow up on wound culture and blood culture, continue wound care -Continue IV vancomycin pharmacy to dose daily and IV Zosyn q.8h-day two, significant improvement in WBC count -IV NS @ 100 mL/hour -patient does not need any further investigation for the possible congenital immunodeficiency presented with multiple skin infection/abscesses in the absence of any other upper and a lower respiratory infections after discussed with the ID specialist Dr. Vu. 04/30/[address] in right buttock without drainage, bleeding or soakage Continue IV vancomycin and Zosyn, as per recommendations of ID, Dr. Vu Wound culture shows Gram-positive cocci in pairs, follow up sensitivity report He will need outpatient dermatology evaluation # Elevation of isolated alkaline phosphatase -normal liver function tests -pending GGT to confirm bony or from hepatobiliary origin -next step should be ultrasound abdomen and autoimmune antibody tests if it is from hepatobiliary origin 04/30/25 GGT is normal-14 Hepatobiliary origin is ruled out, could be bone etiology Requires outpatient follow up # Substance use disorder -Urine drug screen is positive for cannabinoids -Substance use navigator and social service consulted and appreciate Code status: Full code DVT prophylaxis: Lovenox GI prophylaxis: Protonix Pain management: Morphine p.r.n. Diet/nutrition: Regular diet Prognosis: Guarded Disposition: Continue medical management, continue antibiotics, and follow up with sensitivity report, PT eval and DC plan Resident attestation: The patient note has been reviewed and supervised by senior residents PGY-2/ PGY-3. Patient was seen, examined and discussed with attending physician. Star Rodriguez MD Internal Medicine resident, PGY-1 Date of Service: Apr 30, 2025 Billing Provider: JEROME DOWNS MD Common Visit Codes: [id number] INP/OBS CARE(HIGH) STAR RODRIGUEZ, RES Apr 30, 2025 10:34 JEROME DOWNS MD May 03, 2025 06:26
[2025-04-30 11:33] VITALS: BP 121/62; PULSE 82; RESP 18; TEMP 97.8; O2SAT 100
[2025-04-30] MEDS: VANCOMYCIN LEVEL IV ONE (16:03)
[2025-04-30 18:00] VITALS: BP 113/60; PULSE 73; RESP 19; TEMP 98.7; O2SAT 100
[2025-04-30 20:15] VITALS: RESP 16
[2025-04-30 22:00] VITALS: BP 125/59; PULSE 63; RESP 16; TEMP 97.3; O2SAT 99
[2025-05-01 04:38] LABS: CREATININE 0.64 MG/DL (0.60-1.10); TOTAL CARBON DIOXIDE 29.4 MMOL/L (24-32); eCRCL 175 ML/MIN; eGFR > 90 ML/MIN
[2025-05-01 04:45] LABS: MEAN PLATELET VOLUME 7.4 FL (7.4-10.4); RED CELL DISTRIBUTION WIDTH 13.1 % (11.5-14.5)
[2025-05-01 05:00] VITALS: BP 110/61; PULSE 62; RESP 18; TEMP 98.2; O2SAT 100
[2025-05-01 08:23] VITALS: RESP 16
[2025-05-01 11:11] VITALS: BP 114/76; PULSE 81; RESP 18; TEMP 98.7; O2SAT 99
[2025-05-01] MEDS ORDERED: DOXY-243 PO (13:14)
[2025-05-01] MEDS ORDERED: AMOX-580 PO (13:14)
[2025-05-01] MEDS ORDERED: LACT1CAP26 PO (13:14)
--- NOTE | 2025-05-01 18:20 | PROGRESS NOTE ---
Progress Note ID Providers to CC ~ Progress Note Progress Note: Antibiotic Days: Vanc 5, Zosyn 5 Lines: PIV Micro: 04/26 Blood- Negative 04/27 Abscess- Anaerobic GNR Subjective: Patient's cultures lend more credence to the HS ddx. He was given a recommendation for orals but instructed to get an outpatient Derm evaluation Objective: Vitals: Afebrile, 62, 18, 110/61, 100% on RA General: Alert, NAD CV: Regular Resp: Clear anteriorly Abd: Soft, nontender, nondistended Skin: Wound dressed Lines: PIV ok Laboratory Tests 05/01/25 03:27 Assessment: // R gluteal abscess s/p I&D in the ER with cultures growing anaerobic GNR. -He sites a hx of recurrences but last culture here in 2021 grew nothing. His A1c looks good and HIV screens negative. His distribution could suggest HS // Antibiotic Allergies: Sulfa caused a rash // MRSA Screen: pending Plan: - Vanco and Zosyn can be changed to empiric Doxy/Augmentin to finish up a week of therapy - He should get an outpatient derm evaluation for HS - Wound care KEVIN PERALTA DO May 01, 2025 18:20
--- NOTE | 2025-05-01 21:07 | DISCHARGE SUMMARY-Residence ---
Discharge Summary Providers to CC Resident Creating Document: STAR RODRIGUEZ, RES ~ Discharge Summary Admission Diagnosis: abscess in buttock Hospital Course DATE OF ADMISSION: 04/27/2025 DATE OF DISCHARGE: 05/01/2025 Chest x-ray on 04/26/2025 FINDINGS: Lines and Tubes: None Lungs: No focal consolidation. Pleura: No effusion. No pneumothorax. Cardiomediastinal contours: Unremarkable Bones: No acute osseous abnormality. IMPRESSION: No acute cardiopulmonary disease. Pelvis CT on 04/26/2025 Findings: Visualized bowel: Small bowel and colon are normal in caliber and distribution. The appendix is normal. Ascites: Absent Lymphadenopathy: No pelvic or mesenteric lymphadenopathy. Pelvis Wall and Mesentery: Unremarkable. Vasculature: The visualized abdominal aorta is normal in size and caliber. Abdominal and pelvic vessels demonstrate normal enhancement. Pelvic Organs: Unremarkable Musculoskeletal: Well-circumscribed rim enhancing organized collection of fluid and gas within the posterior gluteal and thigh soft tissues measuring 8.5 x 5.9 x 2.9 cm, consistent with abscess. There is substantial adjacent associated inflammatory change and soft tissue swelling and edema consistent with probable cellulitis. No aggressive focal bony lesions, acute fractures or dislocation. Bladder: Unremarkable IMPRESSION: Posterior gluteal and thigh soft tissue abscess with associated cellulitis. Discharge Diagnosis\Comment: Abscess and right gluteal Cellulitis and right gluteal Status post I and D Sepsis Substance use disorder Elevated ALP Operations\Procedures: Incision and drainage in ER by Dr. Lira, Wong Terrie Michael Patient and drainage: Status post informed verbal consent patient was sterilely cleaned and draped. 10 cc of lidocaine with epinephrine was utilized to anesthetize patient. 11. Blade utilized to perform to incision garvey to patient's large abscess. De loculation with sterile probe performed along with expression of a proximally 20 cc of purulent discharge. Packing was threaded through patient's abscess and doubt create a loop for continued drainage. Patient tolerated procedure well without complication. Total time of procedure 10 minutes. Consultants: Dr. Suad Vu Complications: None Condition on DC: Stable New Medications: Amox Tr/Potassium Clavulanate 875/125 MG (Augmentin 875/125 MG) 875 Mg-125 Mg Tablet 1 TAB PO BID for 7 Days, #14 TAB Doxycycline Hyclate (Doxycycline Hyclate) 100 Mg Tablet.dr 100 MG PO BID for 7 Days, #14 TAB Lactobacillus Rhamnosus (Culturelle) 10 Billion Cell Capsule 1 CAP PO DAILY for 30 Days, #30 CAP 0 Refills Continued Medications: Naproxen (Naproxen) 500 Mg Tablet 1 TAB PO Q12H, #60 TAB 2 Refills Discontinued Medications: Cephalexin*Monohydrate* (Keflex*) 500 Mg Capsule 1 CAP PO QID, #40 CAP Discharge Summary: HPI at the time of admission per admitting physician A 24 years old male with 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 Patient stated that has a small bump started 3 days ago, progressively worsened to the size of around 10 cm with burning and stabbing type of pain of intensity 6/10 associated with mild fever and chills. Patient denies any pus or blood discharge . Patient denies any malaise,diabetes, recent steroid use or immuno suppressants, HIV or hepatitis, IV drug use. Patient has similar kind of abscess in multiple sites ( more on buttocks ) from the age of 14 years. The Most recent one was 6 months ago on the nape of neck. He did not remember any culture reports or antibiotics name previously . Patient stated that he lost 100 lbs at the age of 17. Course in the hospital Patient was admitted for abscess and cellulitis and right buttock with sepsis. Incision and drainage of 10-5 cm large abscess with 20 cc of purulent discharge removed by Dr. Lira. -CT pelvis: Posterior gluteal and thigh soft tissue abscess with associated cellulitis.Well-circumscribed rim enhancing organized collection of fluid and gas within the posterior gluteal and thigh soft tissues measuring 8.5 x 5.9 x 2.9 cm, consistent with abscess. There is substantial adjacent associated inflammatory change and soft tissue swelling and edema consistent with probable cellulitis. ID specialist Dr. Suad andrea done was consulted and we continued vanc and Zosyn per ID recommendations. Wound culture showed Gram-positive cocci in pairs. A1c is 5.1, HIV is nonreactive, hepatitis- B and C is negative. Substance use navigator and social services counselor were consulted for substance use disorder. Alkaline phosphatase is elevated with normal GGT and we ruled out hepatobiliary origin but we could not able to rule out bone specific ALP and recommended for outpatient follow up. Received 2 L of normal saline and received IV normal saline at 50 mL/hour. We discharged the patient on oral Augmentin. Examination at the time of discharge Vital Signs Date Time Temp Pulse Resp B/P (MAP) Pulse Ox O2 Delivery O2 Flow Rate FiO2 05/01/25 11:11 98.7 81 18 114/76 (89) 99 Room Air 05/01/25 08:23 0.0 Examination: Awake , alert, and oriented x4, resting comfortably in the bed, in no acute distress HEENT: Atraumatic, normocephalic, EOMI, anicteric sclera ; pink conjunctiva, moist mucous membranes Neck: Trachea midline. Supple, full range of motion, no JVD Cardiac: Regular rhythm, regular rate with no murmurs all over the precordium. Respiratory: Equal breath sounds bilaterally, no tachypnea, no wheezing ,rub or rales, Chest wall is symmetric and without deformity. Gastrointestinal: Abdomen symmetric, non-distended, soft, non-tender, normal bowel sounds x4 quadrant, normoactive, no hepatosplenomegaly Musculoskeletal: No pedal edema, no cyanosis Neurological: Speech is clear, alert, and oriented x 4. No motor or sensory deficit, deep tendon reflexes normal, cerebellar intact. Cranial nerves II-XII intact. Skin: Patient has multiple healed abscess sites over both buttocks, dressing present over the right buttock with no soakage, no tenderness noted Laboratory Tests Test 04/30/25 04:59 04/30/25 15:14 05/01/25 03:27 White Blood Count 6.5 X10'3 7.1 X10'3 Red Blood Count 3.39 X10'6 3.42 X10'6 Hemoglobin 11.1 g/dl 11.5 g/dl Hematocrit 33.0 % 33.1 % Mean Corpuscular Volume 97.4 FL 96.8 FL Mean Corpuscular Hemoglobin 32.8 PG 33.5 PG Mean Corpuscular Hemoglobin Concent 33.7 g/dL 34.6 g/dL Red Cell Distribution Width 13.0 % 13.1 % Platelet Count 246 X10'3 284 X10'3 Mean Platelet Volume 7.4 FL 7.4 FL Neutrophils (%) (Auto) 56.7 % 56.5 % Lymphocytes (%) (Auto) 31.5 % 30.9 % Monocytes (%) (Auto) 8.9 % 9.7 % Eosinophils (%) (Auto) 2.8 % 2.7 % Basophils (%) (Auto) 0.1 % 0.2 % Neutrophils # (Auto) 3.7 X10'3 4.0 X10'3 Lymphocytes # (Auto) 2.0 X10'3 2.2 X10'3 Monocytes # (Auto) 0.6 X10'3 0.7 X10'3 Eosinophils # (Auto) 0.2 X10'3 0.2 X10'3 Basophils # (Auto) 0.0 X10'3 0.0 X10'3 CBC Comment Sodium Level 143 MMOL/L 140 MMOL/L Potassium Level 3.9 MMOL/L 3.7 MMOL/L Chloride Level 107 MMOL/L 106 MMOL/L Carbon Dioxide Level 29.2 MMOL/L 29.4 MMOL/L Anion Gap 7 5 Blood Urea Nitrogen 8 MG/DL 10 MG/DL Creatinine 0.50 MG/DL 0.64 MG/DL Estimated GFR/1.73 m2 > 90 ML/MIN > 90 ML/MIN BUN/Creatinine Ratio 16.0 15.6 Glucose Level 99 MG/DL 88 MG/DL Calcium Level 8.4 MG/DL 8.4 MG/DL Albumin 3.1 G/DL 3.3 G/DL Chemistry Comments Vancomycin Level Trough 18.6 ug/mL Discharge advise Follow up with PCP in 1-2 weeks Continue antibiotics-Augmentin and doxycycline for 1 week Follow up with outpatient Dermatology regarding recurrent abscesses and Hidradenitis suppurativa (HS). Continue probiotics along with antibiotics Continue wound care Outpatient wound care appt May.02 at 1:30. Patient aware. *Problems/Diagnosis: (1) Abscess, gluteal, right (2) Status post incision and drainage (3) Sepsis (4) Elevated alkaline phosphatase level (5) Substance use disorder Total Time Spent on D/C: > 30 Minutes Date of Service: May 01, 2025 Billing Provider: JEROME DOWNS MD Common Visit Codes: 24284-JYI/OBS DISCH DAY >30min STAR RODRIGUEZ, RES May 01, 2025 21:03 JEROME DOWNS MD May 03, 2025 06:27
== END 2025-05-01 13:30 | disposition home or self-care (01) | DRG 720 ==
LOC: ER 20:41 → ED HOLD 04-27 01:00 → SUR 3N 04-27 02:00
PROVIDERS: ADMIT Internal Medicine; ATTEND Family Medicine
PROC: BW2G1ZZ Computerized Tomography (CT Scan) of Pelvic Region using Low Osmolar Contrast (ICD-10-PCS; principal; 2025-04-26)
PROC: 0H98XZZ Drainage of Buttock Skin, External Approach (ICD-10-PCS; 2025-04-26)
DX: A41.9 Sepsis, unspecified organism (principal); L02.31 Cutaneous abscess of buttock; L03.317 Cellulitis of buttock; Z88.2 Allergy status to sulfonamides; Z88.1 Allergy status to other antibiotic agents
CPT/HCPCS: 10061; 36415; 71045; 72193; 80048; 80053; 80061; 80202; 80305; 81001; 82977; 83036; 83605; 83735; 83880; 84100; 84145; 84484; 85025; 85610; 85651; 85730; 86140; 86703; 86705; 86803; 87040; 87070; 87075; 87081; 87340; 87522; 96365; 96375; 99285; A6212; A6449; G0378; J1650; J1885; J2270; J2405; J2543; J3373; J3375; J3490; J7030; J7040; J7050; Q9967